=== PATIENT | female | born 1985 | race African-American/Black ===

== ENCOUNTER 2021-12-08 13:31 | Inpatient (IN) ==
[2021-12-08] MEDS ORDERED: SODIUM CHLORIDE 0.9% 1,000 ML IV STA (13:52)
[2021-12-08] MEDS ORDERED: ONDANSETRON 4 MG/2 ML VIAL IV STA (13:52)
[2021-12-08 14:26] LABS: Basophils % 0.3 % (0.0-0.8); Eosinophils # 0.2 10*3/uL (0.0-0.87); Eosinophils % 3.4 % (0.00-10.9); Hematocrit 40.1 VOL% (35.7-47.0); Hemoglobin 12.1 GM/DL (12.0-16.0); Immature Granulocytes % 0.5 %; Immature Granulocytes Absolute 0.03 #; Lymphocytes # 1.2 10*3/uL (1.4-4.0); Mean Corpuscular HGB Conc 30.2 GM/DL (32-36); Mean Corpuscular Volume 76.4 FL (87-102); Mean Platelet Volume 10.2 FL (9.6-12.0); Monocytes # 0.6 10*3/uL (0.11-0.8); Monocytes % 9.8 % (1.7-12.7); Platelet Count 246 T/CUMM (130-400); Red Blood Count 5.25 MC/CUMM (3.8-5.5); White Blood Count 5.9 T/CUMM (4-12)
[2021-12-08 14:51] LABS: Albumin 3.6 G/DL (3.4-5.0); Bilirubin,Total 0.4 MG/DL (0.20-1.00); Calcium 9.4 MG/DL (8.5-10.1); Osmolality,Calculated 278.1 MOS/KG (273-304); Total Protein 8.2 G/DL (6.4-8.2)
[2021-12-08 15:07] VITALS: BP 124/84
[2021-12-08] MEDS ORDERED: INSULIN REGULAR 100 UNIT/ML IV ONE (15:12)
[2021-12-08] MEDS ORDERED: SODIUM CHLORIDE 0.9% IV PRN (15:12)
[2021-12-08] MEDS ORDERED: SODIUM PHOSPHATE IV PRN (15:12)
[2021-12-08] MEDS ORDERED: SODIUM CHLORIDE 0.9% 1,000 ML IV ONE (15:12)
[2021-12-08] MEDS ORDERED: SODIUM BICARB INJ 100 MEQ in STERILE WATER INJ 400 ML IV PRN (15:12)
[2021-12-08] MEDS ORDERED: POTASSIUM CHLORIDE RIDER 10 MEQ/100 ML PREMIX IV PRN (15:12)
[2021-12-08] MEDS ORDERED: MAGNESIUM SULF RIDER 4 GM/100 ML PREMIX IV PRN (15:12)
[2021-12-08] MEDS ORDERED: DEXTROSE 10% 250 ML BAG IV PRN ×2 (15:12)
[2021-12-08] MEDS ORDERED: MAGNESIUM SULF RIDER 2 GM/50 ML PREMIX IV PRN (15:12)
[2021-12-08] MEDS ORDERED: ENOXAPARIN 40 MG/0.4 ML SYRINGE SUBCUT SCH (15:30)
[2021-12-08] MEDS ORDERED: INSULIN REGULAR DRIP 100 ML IV SCH (15:30)
[2021-12-08 15:49] LABS: Urine Appearance Clear (Clear); Urine Color Yellow (Yellow)
[2021-12-08 15:51] LABS: Bacteria,Urine Occasional /HPF (Few); Bilirubin,Urine Negative (Negative); Blood, Urine Negative (Negative); Glucose,Urine (UA) 500 mg/dL (Negative); Ketones,Urine >160 mg/dL (Negative); Mucus,Urine Occasional /LPF (Occasional); Nitrite,Urine Negative (Negative); Protein,Urine Negative (Negative); RBC,Urine 2 /HPF (0-4); Squamous Epithelial Cell,Urine Many /HPF (0-10); Urine Specific Gravity 1.025 (1.001-1.035); Urine Urobilinogen 0.2 eU/dL (<2.0); Urine pH 5.5 (4.5-8.0)
[2021-12-08 16:21] LABS: Calcium 8.6 MG/DL (8.5-10.1); Osmolality,Calculated 282.5 MOS/KG (273-304); Potassium 3.9 MMOL/L (3.5-5.1)
[2021-12-08] MEDS: DEXTROSE 5% NACL 0.45% 1,000 ML IV SCH (17:36)
[2021-12-08 18:19] LABS: Calcium 8.3 MG/DL (8.5-10.1); Osmolality,Calculated 277.8 MOS/KG (273-304); Potassium 4.1 MMOL/L (3.5-5.1)
[2021-12-08] MEDS: SODIUM CHLORIDE 0.9% 1,000 ML IV SCH (19:53)
[2021-12-08] MEDS ORDERED: SODIUM CHLORIDE 0.9% 1,000 ML IV SCH (20:30)
[2021-12-08] MEDS ORDERED: cephALEXin 500 MG CAPSULE PO SCH (21:00)
[2021-12-08 23:51] LABS: Calcium 8.6 MG/DL (8.5-10.1)
[2021-12-09] MEDS: DEXTROSE 5% NACL 0.45% 1,000 ML IV SCH ×3 (01:40→06:13)
[2021-12-09] MEDS: POTASSIUM CHLORIDE 20 MEQ TABLET PO PRN ×4 (03:39→10:52)
[2021-12-09 04:58] LABS: Basophils % 0.2 % (0.0-0.8); Eosinophils # 0.2 10*3/uL (0.0-0.87); Eosinophils % 2.9 % (0.00-10.9); Hematocrit 34.2 VOL% (35.7-47.0); Hemoglobin 10.6 GM/DL (12.0-16.0); Immature Granulocytes % 0.4 %; Immature Granulocytes Absolute 0.02 #; Lymphocytes # 1.4 10*3/uL (1.4-4.0); Lymphocytes % 26.3 % (21.3-54.2); Mean Corpuscular Volume 75.3 FL (87-102); Mean Platelet Volume 10.9 FL (9.6-12.0); Monocytes # 0.6 10*3/uL (0.11-0.8); Monocytes % 11.3 % (1.7-12.7); Neutrophils % 58.9 % (38.7-73.9); Platelet Count 227 T/CUMM (130-400); Red Blood Count 4.54 MC/CUMM (3.8-5.5); Red Cell Distribution Width 15.6 % (9.3-17.3); White Blood Count 5.2 T/CUMM (4-12)
[2021-12-09 05:11] LABS: Calcium 8.2 MG/DL (8.5-10.1); Osmolality,Calculated 277.1 MOS/KG (273-304)
[2021-12-09 05:15] LABS: Phosphorous 1.4 MG/DL (2.5-4.9)
[2021-12-09 07:27] LABS: Calcium 8.1 MG/DL (8.5-10.1); Osmolality,Calculated 277.5 MOS/KG (273-304); Potassium 3.6 MMOL/L (3.5-5.1)
[2021-12-09] MEDS ORDERED: GLUCAGON 1 MG VIAL IM PRN (08:04)
[2021-12-09] MEDS ORDERED: DEXTROSE 10% 250 ML BAG IV PRN (08:04)
[2021-12-09] MEDS ORDERED: INSULIN NPH/REGULAR 70/30 100 UNIT/ML SUBCUT SCH (08:05)
[2021-12-09] MEDS ORDERED: SODIUM CHLORIDE 0.45% 1,000 ML IV SCH (08:30)
[2021-12-09] MEDS ORDERED: FERROUS SULFATE 325 MG TABLET PO SCH (09:00)
[2021-12-09] MEDS ORDERED: INSULIN LISPRO 100 UNIT/ML SUBCUT SCH (11:30)
[2021-12-09 11:33] LABS: Calcium 8.6 MG/DL (8.5-10.1); Osmolality,Calculated 279.7 MOS/KG (273-304); Potassium 3.9 MMOL/L (3.5-5.1)
== END 2021-12-09 13:42 | disposition home or self-care (01) | DRG 639 ==
LOC: N.ED 13:31 → N.EDINP 15:12 → N.CC 16:18
PROVIDERS: ADMIT Family Medicine; ATTEND Family Medicine